=== PATIENT | male | born 1955 | race Caucasian/White ===

== ENCOUNTER 2022-01-19 08:18 | Emergency (ER) | payer MEDICARE ==
[~2022-01-19] VITALS: Ht 177.8 cm; Wt 75.0 kg
[2022-01-19 08:23] VITALS: TEMP 96.9
[2022-01-19 08:47] LABS: BASO % 0.5 % (0.0-2.0); EOS # 0.1 K/mm3 (0.0-0.7); EOS % 1.7 % (0.0-4.0); GRAN # 5.2 K/mm3 (1.4-6.5); GRAN % 65.5 % (42.2-75.2); HEMATOCRIT 46.5 % (42.0-52.0); HEMOGLOBIN 16.1 g/dl (13.5-18.0); LYMPH # 1.9 K/mm3 (1.2-3.4); LYMPH % 24.4 % (20.0-51.0); MEAN CELL VOLUME 90 fl (80.0-100.0); MEAN CORPUSCULAR HEMOGLOBIN 31 pg (27-31); MEAN CORPUSCULAR HGB CONC 35 g/dl (33.0-37.0); MEAN PLATELET VOLUME 10.2 fl (7.4-10.4); MONO # 0.6 K/mm3 (0.1-0.6); MONO % 7.5 % (1.7-9.3); PLATELET COUNT 191 K/mm3 (130-400); RED BLOOD COUNT 5.19 M/mm3 (4.20-5.60); REDCELL DISTRIBUTION WIDTH-CV 12.7 % (11.5-14.5)
[2022-01-19 08:49] LABS: COLLECTION METHOD CLEAN CATCH
[2022-01-19 09:00] LABS: MUCOUS Present (NOT PRESENT); PH 5 (5-8); SQUAMOUS EPITHELIAL 0-2 /hpf (0-10); URINE APPEARANCE Hazy (CLEAR/HAZY); URINE BACTERIA None Seen /hpf (NONE SEEN); URINE BILIRUBIN Negative (NEGATIVE); URINE BLOOD 2+ (NEGATIVE); URINE CALCIUM OXALATE CRYSTAL Present (NOT PRESENT); URINE COLOR Yellow (YELLOW); URINE GLUCOSE 1+ (NEGATIVE); URINE KETONE Trace (NEGATIVE); URINE LEUKOCYTE ESTERASE Negative (NEGATIVE); URINE NITRATE Negative (NEGATIVE); URINE PROTEIN(semi-quant) 1+ (NEGATIVE); URINE RBC 20-50 /hpf (0-2); URINE UROBILINOGEN Negative (NEGATIVE)
[2022-01-19] MEDS ORDERED: COZAAR 25MG25 MG/TAB PO (09:00)
[2022-01-19] MEDS ORDERED: SINGULAIR 110 MG/TAB PO (09:00)
[2022-01-19 09:03] LABS: ALBUMIN 4.5 gm/dL (3.4-4.8); BILIRUBIN,TOTAL 0.6 mg/dL (0.2-1.2); CREATININE, serum 1.27 mg/dL (0.72-1.25); POTASSIUM 4.1 mmol/L (3.5-4.5); TOTAL PROTEIN 6.4 gm/dL (6.2-8.1)
[2022-01-19] MEDS ORDERED: CRUTCHES MC ×2 (09:06)
[2022-01-19] MEDS ORDERED: PERCOCET 325 MG1 TA2 PO ×3 (11:45→13:04)
[2022-01-19 13:01] VITALS: BP 140/82; PULSE 82
== END 2022-01-19 13:00 | disposition home or self-care (01) ==
LOC: COL.ER 08:18
PROVIDERS: Personal Emergency Response Attendant
DX: N20.2 Calculus of kidney with calculus of ureter (principal)
CPT/HCPCS: J2270; J2405; J7030